=== PATIENT | male | born 1965 | race Caucasian/White ===

== ENCOUNTER → 2020-12-07 14:21 | Outpatient (BNVA) | payer OTHER, SELFPAY | PROVIDERS: Family Provider Family Medicine; PCP Electrodiagnostic Medicine; Visit Provider Surgery | DX: Z01.812 Encounter for preprocedural laboratory examination (principal); Z20.822 Contact with and (suspected) exposure to COVID-19 | CPT/HCPCS: 87635 ==

== ENCOUNTER 2020-12-12 06:40 | Day surgery (SDC) | payer OTHER, SELFPAY ==
[2020-12-11 14:56] VITALS: BMI 36.8
[2020-12-12] VITALS (9 sets, daily range): BP systolic 96–123; BP diastolic 71–94; PULSE 91–129; RESP 18–24; TEMP 36.3–36.8; O2SAT 91–96
[2020-12-12 07:25] LABS: Glucose Point of Care 222 mg/dL (70-110)
[2020-12-12] MEDS: sodium chloride 0.9% 1,000 ML 30 ML IV (07:27)
--- NOTE | 2020-12-12 07:37 | W.PM.OPSUD ---
Surgery/Procedure H&P Update DATE OF PROCEDURE: December 12, 2020 DATE H&P PERFORMED: 11/16/20 H&P UPDATE INFORMATION: I have reviewed H&P completed within last 30 days, I have examined patient prior to procedure and No changes to prior documentation PREOP DIAGNOSIS: umbilical hernia PLANNED PROCEDURE: Operation Date: 12/12/20 08:10 Proposed Procedures p Umbilical Hernia Repair(Not Applicable) - Frank Yuen MD
--- NOTE | 2020-12-12 07:45 | ANES.PREANE2 ---
Pre-Anesthetic Assessment Pre-Anesthetic Assessment: Height/Weight: Height 1.78 m Weight 116.573 kg Temp Pulse Resp BP Pulse Ox 98.2 F 91 18 120/89 94 12/12/20 07:13 12/12/20 07:13 12/12/20 07:13 12/12/20 07:13 12/12/20 07:13 Preop Diagnosis: umbilical hernia Proposed Procedure: Operation Date: 12/12/20 08:10 Proposed Procedures p Umbilical Hernia Repair(Not Applicable) - Frank Yuen MD Familial anesthetic complications: None Was Beta Pattie taken within 24 hours: Yes Was Clonidine taken within 24 hours: N/A Last intake: Intake Last Liquid Date 12/11/20 Last Liquid Time 20:00 Last Solid Date 12/11/20 Last Solid Time 20:00 Social: Social History: No alcohol and No tobacco Exam: Pre-Anes Outpt Exam: alert, oriented x 3, clear to auscultation bilaterally and regular rate & rhythm Airway: Cervical ROM: WNL MP: 4 Dentition: Full CV/HEM: CV/HEM: HTN GI: GI: GERD Metabolic: Metabolic: DM and Morbid obesity Neuropsych: Neuropsych: Depression Anesthetic Plan: ASA status: 2 Anesthesia: General Risk of > 500 ml blood loss (7ml/kg in children): No Meds/Allergies Current Medications: Current Medications Generic Name Dose Route Start Last Admin Trade Name Freq PRN Reason Stop Dose Admin Sodium Chloride 1,000 mls @ 30 ml s/hr 12/12/20 07:15 12/12/20 07:27 Sodium Chloride 0.9% IV 12/13/20 07:14 30 mls/hr .Q24H JEREMY Administration PFSH Anesthesia PFSH: Medical History (Updated 11/16/20 @ 09:08 by Frank Yuen MD) Depression Diabetes GERD (gastroesophageal reflux disease) Hypertension Surgical History (Updated 11/16/20 @ 09:08 by Frank Yuen MD) History of colonoscopy with polypectomy 2018 History of tonsillectomy Family History (Updated 11/16/20 @ 08:50 by Alycia Gordon) Other Diabetes Hypertension Stroke Social History (Updated 11/16/20 @ 08:50 by Alycia Gordon) Second hand smoke exposure: No Alcohol intake: former Lives independently: Yes Household members: spouse Data Anesthesia Other Labs: Laboratory Results - last 48 hr 12/12/20 07:22 POC Glucose 222 H Cardiac Studies: No Data to Display
--- NOTE | 2020-12-12 08:15 | PM.OP ---
Operative Report Date of procedure: December 12, 2020 Pre-op Diagnosis: Reducible 2 cm umbilical hernia Post-op Findings: Reducible 2 cm umbilical hernia containing omentum Procedure Done: Open primary repair of umbilical hernia Pathology: none sent Surgeon: Frank Yuen Anesthesia: General Condition: stable Disposition: PACU Procedure: The patient was taken to the operating room and intubated under general anesthesia after IV antibiotic had been administered. The abdomen was prepped and draped in a sterile manner. A 2 cm infraumbilical curvilinear incision was made using a 15 blade, a hernial sac dissected out using electrocautery and dissection with hemostats. The hernial sac was opened and omentum was reduced into the peritoneal cavity. Interrupted sutures using 0 Vicryl was used to close the hernial defect without any tension. The subcutaneous tissue was approximated using 3-0 Vicryl and skin was closed using running subcuticular 4-0 Monocryl sutures. Dermabond was applied and 10 mL of 0.5% Marcaine was infiltrated around the incision. A 2 x 2 gauze was then placed within the umbilicus and sterile dressings are applied. The patient was stable throughout the procedure.
--- NOTE | 2020-12-12 08:32 | XR_ITS ---
WS: [id number] Exam: XR chest 1V portable [id number] Date/Time of Exam: 12/12/2020 8:42 AM Reason For Exam: Preop atelectasis No priors. Findings: The lungs are clear and fully expanded. Costophrenic angles are sharp. No infiltrates. Bronchovascula r relief appears normal. Cardiac silhouette is unremarkable. Bony elements are intact. XR/XR chest 1V portable [id number] IMPRESSION: Unremarkable chest radiograph.
--- NOTE | 2020-12-12 08:35 | SUR.PHASEI ---
0843 PT ARRIVED TO PACU CONTINUOS COUGHING, PT HAS HEMORRHAGE IN L. EYE, DENIES ANY DISCOMFORT
--- NOTE | 2020-12-12 08:57 | ANE.PACU2 ---
Inpatient post-anesthesia follow up: Airway intact: Yes Vital signs: Temperature 97.4 F Pulse Rate 104 Respiratory Rate 22 Blood Pressure 101/79 Pulse Oximetry 93 Oxygen Delivery Me thod Room Air Oxygen Flow Rate Fraction of Inspir ed Oxygen Hydration adequate: Yes Nausea and vomiting: No Pain level: 2 Mental status: Baseline Additional Comments: Upon LMA removal small particulate amounts of chewing tobacco were suctioned. Patient is coughing in PACU, satting 93-97% on Room air. Cough clearning. Baseline CXR obtained. Patient informed not to chew tobacco before procedures, to treat it like gum or candy. Educated patient that if he starts to develop signs of aspiration pneumonia, Fever, productive cough, SOB to return to ER for treatment of possible interval development of aspiration pnuemonia.
[2020-12-12] MEDS: HYDROcodone-acetaminophen 5-325 mg Tablet 1 TAB PO (09:24)
--- NOTE | 2020-12-12 13:15 | ANE.PACU2 ---
Inpatient post-anesthesia follow up: Airway intact: Yes Vital signs: Temperature 97.9 F Pulse Rate 97 Respiratory Rate 18 Blood Pressure 123/94 Pulse Oximetry 94 Oxygen Delivery Me thod Room Air Oxygen Flow Rate Fraction of Inspir ed Oxygen Hydration adequate: Yes Nausea and vomiting: No Pain level: 1 Mental status: Baseline
--- NOTE | 2020-12-12 13:18 | ANE.PACU2 ---
Inpatient post-anesthesia follow up: Airway intact: Yes Vital signs: Temperature 97.9 F Pulse Rate 97 Respiratory Rate 18 Blood Pressure 123/94 Pulse Oximetry 94 Oxygen Delivery Me thod Room Air Oxygen Flow Rate Fraction of Inspir ed Oxygen Hydration adequate: Yes Nausea and vomiting: No Pain level: 2 Mental status: Baseline
== END 2020-12-12 09:43 | disposition home or self-care (01) ==
PROVIDERS: PCP Electrodiagnostic Medicine; Visit Provider Surgery
PROC: (CPT 49587; principal; 2020-12-12 08:10)
DX: K42.0 Umbilical hernia with obstruction, without gangrene (principal); I10 Essential (primary) hypertension; K21.9 Gastro-esophageal reflux disease without esophagitis; E11.9 Type 2 diabetes mellitus without complications; E66.01 Morbid (severe) obesity due to excess calories; Z68.36 Body mass index [BMI] 36.0-36.9, adult; F32.9 Major depressive disorder, single episode, unspecified; Z79.84 Long term (current) use of oral hypoglycemic drugs
CPT/HCPCS: 49587; 36416; 71045; 82962; J0690; J1100; J1885; J2405; J2704; J3010; J3490; J7030